=== PATIENT | female | born 1975 | race Caucasian/White ===

== ENCOUNTER 2017-06-11 21:27 | Emergency (ER) | payer OTHER ==
--- NOTE | 2017-06-11 21:38 | PDOC ---
Rapid Medical Evaluation Chief Complaint: Blood/Body Fluid Exposure SJR Time Seen by Provider: 06/11/17 21:37 Medical Evaluation: Allergies Allergy/AdvReac Type Severity Reaction Status Date / Time levofloxacin [From Levaquin] Allergy Intermediate Difficulty Verified 12/16/14 08:18 Breathing 06/11/17 21:37 I have performed a brief in-person evaluation of this patient. The patient presents with a chief complaint of: Employee needle stick Pertinent physical exam findings: none. I have ordered the following: none The patient will proceed to the ED for further evaluation Discharge Disposition - Referrals - Patient Instructions - Post Discharge Activity Work/School Note: Back to Work
[2017-06-11 21:41] VITALS: BP 120/70; PULSE 87; TEMP 98.7; BMI 23.3
--- NOTE | 2017-06-11 22:29 | PDOC ---
Post Exposure HPI - General Chief Complaint: Blood/Body Fluid Exposure SJR Stated Complaint: INJURY Time Seen by Provider: 06/11/17 21:37 - History of Present Illness Initial Comments: 06/11/17 22:29 CHIEF COMPLAINT: needle stick HISTORY OF PRESENT ILLNESS: 41 yo F with hx of hemolytic anemia presents to ED s /p needlestick. She states that she was trying to insert an IV in a patient in the well-baby nursery and accidentally stuck herself. She states that the mother is known HIV- and Hep B- but she would like to get baseline testing for HIV, Hepatitis, and RPR. No recent travel or sick contacts. PAST MEDICAL HISTORY: as per HPI FAMILY HISTORY: Denies SOCIAL HISTORY: Denies tobacco, alcohol, illicit drug use. SURGICAL HISTORY: Denies ALLERGIES: levofloxacin REVIEW OF SYSTEMS General/Constitutional: Denies fever or chills. Denies weakness, weight change. HEENT: Denies change in vision. Denies ear pain or discharge. Denies sore throat. Cardiovascular: Denies chest pain or shortness of breath. Respiratory: Denies cough, wheezing, or hemoptysis. Gastrointestinal: Denies nausea, vomiting, diarrhea or constipation. Denies rectal bleeding. Genitourinary: Denies dysuria, frequency, or change in urination. Musculoskeletal: Denies joint or muscle swelling or pain. Denies neck or back pain. Skin: Needle stick to left index finger. PHYSICAL EXAM General Appearance: Well-appearing, appropriately dressed. No apparent distress. HEENT: EOMI, PERRLA. No conjunctival pallor. No photophobia, scleral icterus. Respiratory/Chest: Lungs CTAB. Cardiovascular: RRR. S1, S2. Gastrointestinal/Abdominal: Normal bowel sounds. Abdomen soft, non-distended. No tenderness or rebound tenderness. No organomegaly, pulsatile mass, guarding , hernia, hepatomegaly, splenomegaly. Musculoskeletal/Extremities: Normal inspection. FROM of all extremities, normal capillary refill. Pelvis Stable. No CVA tenderness. No tenderness to extremities, pedal edema, swelling, erythema or deformity. Integumentary: Appropriate color, dry, warm. No cyanosis, erythema, jaundice or rash Neurologic: armored truck driver II-XII intact. Fully oriented, alert. Appropriate mood/affect. Motor strength 5/5. No appreciable EOM palsy, facial droop or sensory deficit. 06/11/17 22:29 Past History - Past Medical History Allergies/Adverse Reactions: Allergies Allergy/AdvReac Type Severity Reaction Status Date / Time levofloxacin [From Levaquin] Allergy Intermediate Difficulty Verified 12/16/14 08:18 Breathing Home Medications: Ambulatory Orders Cyanocobalamin/FA/Pyridoxine [Folic Acid 2.5 mg Tablet] 5 each PO DAILY Multivitamin [Multivitamins] 1 each PO DAILY 04/17/13 Ascorbic Acid [Vitamin C -] 500 mg PO DAILY 06/11/17 Anemia: Yes (spherocytosis) Asthma: No Cancer: No Cardiac Disorders: No CVA: No COPD: No CHF: No Diabetes: No GI Disorders: No Disorders: No HTN: No Hypercholesterolemia: No Liver Disease: No Seizures: No Thyroid Disease: No - Surgical History Cholecystectomy: Yes (2007) - Suicide/Smoking/Psychosocial Hx Smoking History: Never smoked Have you smoked in the past 12 months: No Hx Alcohol Use: No Drug/Substance Use Hx: No Substance Use Type: None Hx Substance Use Treatment: No *Physical Exam - Vital Signs Last Vital Signs Temp Pulse Resp BP Pulse Ox 98.7 F 87 18 120/70 98 06/11/17 21:39 06/11/17 21:39 06/11/17 21:39 06/11/17 21:39 06/11/17 21:39 Medical Decision Making - Medical Decision Making 06/11/17 22:31 41 yo F with hx of hemolytic anemia presents to ED s/p needlestick. -CBC, CMP, HIV, Hep Panel, RPR Advised patient to follow up with occupational health for results and to get repeat HIV testing. Patient verbalized understanding and agrees to plan. *DC/Admit/Observation/Transfer Diagnosis at time of Disposition: History of exposure to blood or body fluid - Discharge Dispostion Disposition: HOME Condition at time of disposition: Stable Admit: No - Referrals - Patient Instructions Printed Discharge Instructions: How to Handle Body Fluid Exposure -- Healthcare Worker Additional Instructions: As discussed, please follow up with occupational health for the results of your bloodwork next week. You will need to get repeat HIV testing for further evaluation. Follow up with your primary care doctor if you develop any fever, rash, sore throat, or any new or concerning symptoms. - Post Discharge Activity Forms/Work/School Notes: Back to Work
[2017-06-11 22:57] LABS: BASOPHIL 0.7 % (0-2.0); EOSINOPHIL 2.4 % (0-4.5); MCH 34.9 pg (25.7-33.7); MCHC 36.8 g/dl (32.0-36.0); MEAN CELL VOLUME 94.8 fl (80-96); MEAN PLT VOLUME 7.5 fl (7.5-11.1); NEUTROPHILS 69.7 % (42.8-82.8); PLATELET COUNT 277 K/MM3 (134-434); RDW 16.9 % (11.6-15.6); WHITE BLOOD COUNT 9.5 K/mm3 (4.0-10.0)
[2017-06-11 23:35] LABS: ALBUMIN 4.7 g/dl (3.4-5.0); ANION GAP 11 (8-16); CALCIUM 9.4 mg/dL (8.5-10.1); CO2 23 mmol/L (21-32); GLUCOSE,RANDOM 85 mg/dL (74-106); SGOT/AST 7 U/L (15-37); SGPT/ALT 17 U/L (12-78)
[2017-06-11 23:37] LABS: ALK PHOS 59 U/L (45-117); TOT PROT 7.5 g/dl (6.4-8.2)
[2017-06-12 00:39] LABS: HIV 1 & 2 AB NEGATIVE; HIV 1 AGp24 NEGATIVE
== END 2017-06-11 22:48 | disposition home or self-care (01) ==
LOC: JERFT 21:27
DX: Z77.21 Contact with and (suspected) exposure to potentially hazardous body fluids (principal); S61.231A Puncture wound without foreign body of left index finger without damage to nail, initial encounter; W46.1XXA Contact with contaminated hypodermic needle, initial encounter; Y93.F9 Activity, other caregiving; Y92.238 Other place in hospital as the place of occurrence of the external cause; Y99.0 Civilian activity done for income or pay
CPT/HCPCS: 36415; 80053; 85025; 86593; 86704; 86803; 87340; 87389; 99281-25